=== PATIENT | male | born 1955 | race Caucasian/White ===

== ENCOUNTER 2019-01-28 09:28 | Day surgery (SDC) | payer OTHER ==
[~2019-01-28 09:28] MED LIST: DHEA; NEPHPLEX RX TA1 EACH; VENL150ER; Venlafaxine HC225 MG
--- NOTE | 2019-01-28 11:08 | NUR ---
01/28/19 1108 Erica Natarajan INJECTING MYLICON PER DR MALONEY
== END 2019-01-28 12:00 | disposition home or self-care (01) ==
LOC: ORSCSDS 09:28
PROVIDERS: Internal Medicine Gastroenterology
PROC: 0DBK8ZX Excision of Ascending Colon, Via Natural or Artificial Opening Endoscopic, Diagnostic (ICD-10-PCS; principal; 2019-01-28 10:45)
PROC: 0DBP8ZX Excision of Rectum, Via Natural or Artificial Opening Endoscopic, Diagnostic (ICD-10-PCS; principal; 2019-01-28 10:45)
DX: Z12.11 Encounter for screening for malignant neoplasm of colon (principal); K62.1 Rectal polyp; D12.2 Benign neoplasm of ascending colon; K64.8 Other hemorrhoids; A69.20 Lyme disease, unspecified; F32.9 Major depressive disorder, single episode, unspecified; I10 Essential (primary) hypertension; F17.210 Nicotine dependence, cigarettes, uncomplicated; Z79.899 Other long term (current) drug therapy
CPT/HCPCS: 88305; J2704; J7120

== ENCOUNTER 2019-06-13 12:03 | Day surgery (SDC) | payer OTHER ==
[~2019-06-13] VITALS: Ht 175.3 cm; Wt 100.1 kg
[~2019-06-13 12:03] MED LIST changes: +ATOR20 PO
--- NOTE | 2019-06-13 13:40 | NUR ---
History, Chart, Medications and Allergies reviewed before start of procedure. Patient confirms NPO status and agrees with scheduled surgery.
--- NOTE | 2019-06-13 14:07 | NUR ---
JAME NASAL ELECTRON BEAM WELDER X3 AMPULES TO NARES BILAT PER DR CHAUHAN ORDER.
--- NOTE | 2019-06-13 14:22 | NUR ---
REPORT FROM WILNER JEREZ. ASSUMED PT CARE. PT IN SDS WAITING FOR OR. AT BEDSIDE.
--- NOTE | 2019-06-13 19:37 | NUR ---
SHIFT SUMMARY PT CAME FROM PACU AT 1820, A&OX4, VSS, S/P R TKA, AQUACEL CDI, TEDS/SCDS/POLAR JUAN ON. ROBIN PO, DENIES N&V. DENIES NEED FOR PAIN MEDICATIONS AT THIS TIME; EDU TO TAKE PAIN MED PRIOR TO ESCALATION OF PAIN/CONTINUE TO HAVE CONVERSATIONS RE PAIN MANAGEMENT. REPORT GIVEN TO CHELA JEREZ.
--- NOTE | 2019-06-14 04:26 | NUR ---
SHIFT SUMMARY PO 0 S/P RIGHT TKA; AQUACEL C/D/I WITH POLAR PACK, SKYLER'S, AND PAS IN PLACE. REPORTS PAIN MANAGED WITH PO MEDICATION. TOLERATING REGULAR DIET, DENIES ANY N/V. AMB TO BATHROOM X1 DURING SHIFT WITH FWW AND GB. VOIDING W/OUT DIFFICULTY. PLAN FOR OT/PT EVALUATION AND HOME TOMORROW. IS CURRENTLY RESTING IN BED WITH CALL LIGHT IN REACH. WILL CONT TO MONITOR AND GIVE REPORT TO ONCOMING RN.
[2019-06-14 06:15] LABS: BASOPHILS ABSOLUTE AUTO 0.01 K/mm3 (0.00-0.23); BASOPHILS PERCENT AUTO 0 % (0-2); EOSINOPHILS PERCENT AUTO 0 % (0-6); Hematocrit 43.4 % (37.0-53.0); Hemoglobin 14.7 g/dL (13.5-17.5); IMMATURE GRAN ABSOLUTE AUTO 0.06 K/mm3 (0.00-0.10); IMMATURE GRAN PERCENT AUTO 1 % (0-1); LYMPHOCYTES ABSOLUTE AUTO 0.76 K/mm3 (0.84-5.20); LYMPHOCYTES PERCENT AUTO 6 % (21-46); MONOCYTES ABSOLUTE AUTO 0.48 K/mm3 (0.16-1.47); MONOCYTES PERCENT AUTO 4 % (4-13); Mean Corpuscular HGB 31.7 pg (26.0-34.0); Mean Corpuscular HGB Conc 33.9 g/dL (31.5-36.5); Mean Corpuscular Volume 94 fL (80-100); Mean Platelet Volume 10.6 fL (9.1-12.4); NEUTROPHILS ABSOLUTE AUTO 11.03 K/mm3 (1.96-9.15); NEUTROPHILS PERCENT AUTO 89 % (41-73); Platelet Count 182 K/mm3 (150-400); RDW Coefficient Variation 11.7 % (11.7-14.2); RDW Standard Deviation 39.7 fL (35.1-46.3); Red Blood Cell Count 4.64 M/mm3 (4.30-5.90); White Blood Cell Count 12.34 K/mm3 (4.00-11.30)
[2019-06-14 06:33] LABS: Anion Gap 6 mmol/L (6-16); Blood Urea Nitrogen 19 mg/dL (8-24); Bun/Creatinine Ratio 17.8 (12.0-20.0); CO2, Blood 26 mmol/L (21-32); Calcium, Blood 8.4 mg/dL (8.5-10.1); Chloride, Blood 106 mmol/L (98-108); Creatinine, Blood 1.07 mg/dL (0.60-1.20); Glomerular Filtration Rate >60 (60-); Glucose, Blood 132 mg/dL (70-99); Magnesium, Blood 1.9 mg/dL (1.6-2.4); Potassium, Blood 4.7 mmol/L (3.5-5.5); Sodium, Blood 138 mmol/L (136-145)
[2019-06-14] MEDS ORDERED: ACET500 PO (08:51)
[2019-06-14] MEDS ORDERED: ROXICODONE5 MG PO (08:51)
[2019-06-14] MEDS ORDERED: ASPI81CH PO (08:51)
--- NOTE | 2019-06-14 11:05 | NUR ---
DISCHARGE: PT EATING AND DRINKING, VOIDING, PASSING GAS. PT REPORTS PAIN TOLERABLE ON PO PAIN MEDICATION. PT CLEARED THERAPY TO GO HOME. PT REPORTS HAVING APPR EQUIP AT HOME. PT/FAMILY REPORTS UNDERSTANDING OF DISCHARGE INSTRUCTIONS INCLUDING ICE MACHINE AND DRESSING CHANGES. PT SENT WITH PAPERWORK, BELONGINGS. PT REPORTS WILL TAKE ASA AT HOME THIS AFTERNOON WAS ORDERED HERE.
== END 2019-06-14 11:05 | disposition home or self-care (01) ==
LOC: ORSCMMR 12:03 → ORD 14:15 → ORSCMMR 14:15 → SURS 18:58 → ORSCMMR 06-14 11:05
PROVIDERS: Orthopaedic Surgery
PROC: 0SRC0J9 Replacement of Right Knee Joint with Synthetic Substitute, Cemented, Open Approach (ICD-10-PCS; principal; 2019-06-13 14:15)
DX: M17.11 Unilateral primary osteoarthritis, right knee (principal); E78.5 Hyperlipidemia, unspecified; Z79.899 Other long term (current) drug therapy; E66.9 Obesity, unspecified; Z68.32 Body mass index [BMI] 32.0-32.9, adult
CPT/HCPCS: 36415; 73560-RT; 80048; 83735; 85025; 88300; 97110; 97116; 97162; 97530; C1713; C1776; J0171; J0690; J0735; J1100; J1885; J2250; J2370; J2405; J2704; J2795; J3010; J7120

== ENCOUNTER 2019-11-02 19:21 | Observation (INO) | payer OTHER ==
[~2019-11-02] VITALS: Ht 175.3 cm; Wt 100.6 kg
[~2019-11-02 19:21] MED LIST changes: -ACYC800 PO; -IBUP800 PO; -Norco 5-325 Ta1 EACH PO
[2019-11-02 21:26] LABS: Glucose, CSF 52 mg/dL (40-70)
[2019-11-02 21:41] LABS: RBC Count, CSF 636 /mm3 (0-0); WBC Count, CSF 353 /mm3 (0-5)
[2019-11-02 21:42] LABS: Appearance, CSF Hazy (Clear)
[2019-11-02 21:46] LABS: Appearance, CSF Clear (Clear); RBC Count, CSF 16 /mm3 (0-0); WBC Count, CSF 350 /mm3 (0-5)
[2019-11-02 21:54] LABS: Lymphocytes, CSF 56 % (40-80); Monocytes, CSF 42 % (15-45); Neutrophils, CSF 2 % (0-6)
[2019-11-02 21:56] LABS: Lymphocytes, CSF 45 % (40-80); Monocytes, CSF 54 % (15-45); Other Cells, CSF 1 % (0-1)
[2019-11-02 22:44] LABS: Cryptococcus Neoformans/Gattii Not Detected (NOT DETECT); Enterovirus Not Detected (NOT DETECT); Escherichia Coli K1 Not Detected (NOT DETECT); Haemophilus Influenza Not Detected (NOT DETECT); Herpes Simplex Virus 1 Not Detected (NOT DETECT); Herpes Simplex Virus 2 Detected (NOT DETECT); Human Herpesvirus 6 Detected (NOT DETECT); Human Parechovirus Not Detected (NOT DETECT); Listeria Monocytogenes Not Detected (NOT DETECT); Neisseria Meningitidis Not Detected (NOT DETECT); Streptococcus Agalactiae Not Detected (NOT DETECT); Streptococcus Pneumoniae Not Detected (NOT DETECT); Varicella Zoster Virus Not Detected (NOT DETECT)
--- NOTE | 2019-11-03 01:27 | NUR ---
RECEIVED REPORT FROM DELVIN SMITH RN. PT ARRIVED TO RM 333 VIA W/C. A/O. INDEPENDENT. RESP E/U ON RA. NO COMPLAINTS OF PAIN. STATES HEADACHE WAS 3/10 TOLERABLE, NO NEED FOR PAIN MED. PT ORIENTED TO CALL LT SYSTEM, CALL LT IN REACH. WILL MONITOR AND PROVIDE CARE T/O SHIFT.
--- NOTE | 2019-11-03 04:03 | NUR ---
PT STATES HE'S DOING GREAT. NO NEEDS AT THIS TIME. CALL LT IN REACH.
--- NOTE | 2019-11-03 04:08 | NUR ---
SHIFT SUMMARY: ER ADMIT AT 0127. A/O AND INDEPENDENT IN RM. NO COMPLAINTS. NO HEADACHE AT END OF SHIFT. ON RA. SINUS RHYTHM ON TELE AT 81. VSS. BANDAID OVER LUMBAR PUNCTURE SITE. WILL CONTINUE TO MONITOR AND PROVIDE CARE UNTIL SHIFT REPORT.
[2019-11-03 04:31] LABS: Adenovirus Not Detected (NOT DETECT); Bordetella pertussis Not Detected (NOT DETECT); Chlamydophila pneumoniae Not Detected (NOT DETECT); Coronavirus 229E Not Detected (NOT DETECT); Coronavirus HKU1 Not Detected (NOT DETECT); Coronavirus NL63 Not Detected (NOT DETECT); Coronavirus OC43 Not Detected (NOT DETECT); Human Metapneumovirus Not Detected (NOT DETECT); Human Rhinovirus/Enterovirus Not Detected (NOT DETECT); Influenza A/2009-H1 Not Detected (NOT DETECT); Influenza A/H1 Not Detected (NOT DETECT); Influenza A/H3 Not Detected (NOT DETECT); Influenza B Not Detected (NOT DETECT); Mycoplasma pneumoniae Not Detected (NOT DETECT); Parainfluenza Virus 1 Not Detected (NOT DETECT); Parainfluenza Virus 2 Not Detected (NOT DETECT); Parainfluenza Virus 3 Not Detected (NOT DETECT); Parainfluenza Virus 4 Not Detected (NOT DETECT); Respiratory Syncytial Virus Not Detected (NOT DETECT)
[2019-11-03 05:39] LABS: BASOPHILS ABSOLUTE AUTO 0.04 K/mm3 (0.00-0.23); BASOPHILS PERCENT AUTO 0 % (0-2); EOSINOPHILS ABSOLUTE AUTO 0.14 K/mm3 (0.00-0.68); EOSINOPHILS PERCENT AUTO 2 % (0-6); Hematocrit 45.7 % (37.0-53.0); Hemoglobin 15.1 g/dL (13.5-17.5); IMMATURE GRAN ABSOLUTE AUTO 0.02 K/mm3 (0.00-0.10); IMMATURE GRAN PERCENT AUTO 0 % (0-1); LYMPHOCYTES ABSOLUTE AUTO 1.46 K/mm3 (0.84-5.20); LYMPHOCYTES PERCENT AUTO 16 % (21-46); MONOCYTES ABSOLUTE AUTO 0.99 K/mm3 (0.16-1.47); MONOCYTES PERCENT AUTO 11 % (4-13); Mean Corpuscular HGB 30.6 pg (26.0-34.0); Mean Corpuscular Volume 93 fL (80-100); Mean Platelet Volume 10.4 fL (9.1-12.4); NEUTROPHILS ABSOLUTE AUTO 6.52 K/mm3 (1.96-9.15); NEUTROPHILS PERCENT AUTO 71 % (41-73); Platelet Count 202 K/mm3 (150-400); Red Blood Cell Count 4.94 M/mm3 (4.30-5.90); White Blood Cell Count 9.17 K/mm3 (4.00-11.30)
[2019-11-03 06:10] LABS: Alanine Aminotransfer (ALT/SGP 17 U/L (12-78); Albumin, Blood 3.2 g/dL (3.4-5.0); Albumin/Globulin Ratio 1.1 (0.8-1.8); Alk Phos 71 U/L (50-136); Anion Gap 5 mmol/L (6-16); Aspartate Aminotrans (AST/SGOT 14 U/L (12-37); Bilirubin, Total 0.6 mg/dL (0.1-1.0); Blood Urea Nitrogen 22 mg/dL (8-24); Bun/Creatinine Ratio 20.2 (12.0-20.0); CO2, Blood 27 mmol/L (21-32); Calcium, Blood 8.4 mg/dL (8.5-10.1); Chloride, Blood 108 mmol/L (98-108); Creatinine, Blood 1.09 mg/dL (0.60-1.20); Glomerular Filtration Rate >60 (60-); Glucose, Blood 114 mg/dL (70-99); Sodium, Blood 140 mmol/L (136-145); Total Protein, Blood 6.2 g/dL (6.4-8.2)
--- NOTE | 2019-11-03 17:35 | NUR ---
SHIFT SUMMARY PT ALERT, ORIENTED, INDEPENDENT IN THE ROOM. PT'S SPOUSE IN THE ROOM THIS AM AND AGAIN THIS AFTERNOON. PT UP INDEPENDENTLY TO THE BATHROOM AND SHOWERED INDEPENDENTLY THIS SHIFT. PT ON ACYCLOVIR IV THIS SHIFT. PT MEDICATED FOR PAIN THROUGHOUT THIS SHIFT. PT CURRENTLY SITTING UP IN BED AT BEDSIDE.
--- NOTE | 2019-11-04 04:52 | NUR ---
GAMES MANAGER SUMMARY PT A/O X4. INDEPENDENT IN ROOM. PT HAD SOME DIFFICULTY CATCHING BREATH WHEN PAIN MEDS WERE GIVEN IN AM SHIFT PER REPORT. CONT PULSE OX AND CPAP ORDERED WHICH PT SIGNED A REFUSAL FORM FOR. PT'S PAIN WAS WELL CONTROLLED. ONLY MEDICATED ONCE TONIGHT. 02 SAT WAS IN THE HIGH 90'S AFTER PAIN MED WAS GIVEN. DENIES NUCHAL RIGIDTY OR PAIN. PT DOES HAVE HEADACHE AND LEG PAIN. PT EXPRESSED HE FELT GOOD AFTER PAIN MEDICATION WAS GIVEN AND DID NOT HAVE SOB. VSS, SLEPT WELL TONIGHT.
[2019-11-04 06:09] LABS: BASOPHILS ABSOLUTE AUTO 0.03 K/mm3 (0.00-0.23); BASOPHILS PERCENT AUTO 0 % (0-2); EOSINOPHILS PERCENT AUTO 1 % (0-6); Hematocrit 42.9 % (37.0-53.0); Hemoglobin 14.6 g/dL (13.5-17.5); IMMATURE GRAN ABSOLUTE AUTO 0.03 K/mm3 (0.00-0.10); IMMATURE GRAN PERCENT AUTO 0 % (0-1); LYMPHOCYTES PERCENT AUTO 16 % (21-46); MONOCYTES ABSOLUTE AUTO 0.59 K/mm3 (0.16-1.47); MONOCYTES PERCENT AUTO 8 % (4-13); Mean Corpuscular HGB 31.3 pg (26.0-34.0); Mean Corpuscular Volume 92 fL (80-100); Mean Platelet Volume 10.8 fL (9.1-12.4); NEUTROPHILS ABSOLUTE AUTO 5.62 K/mm3 (1.96-9.15); NEUTROPHILS PERCENT AUTO 74 % (41-73); Platelet Count 195 K/mm3 (150-400); RDW Coefficient Variation 11.9 % (11.7-14.2); RDW Standard Deviation 40.2 fL (35.1-46.3); Red Blood Cell Count 4.66 M/mm3 (4.30-5.90); White Blood Cell Count 7.57 K/mm3 (4.00-11.30)
[2019-11-04 06:28] LABS: Alanine Aminotransfer (ALT/SGP 16 U/L (12-78); Albumin, Blood 3.1 g/dL (3.4-5.0); Albumin/Globulin Ratio 1.1 (0.8-1.8); Alk Phos 66 U/L (50-136); Anion Gap 5 mmol/L (6-16); Aspartate Aminotrans (AST/SGOT 9 U/L (12-37); Bilirubin, Total 0.9 mg/dL (0.1-1.0); Blood Urea Nitrogen 16 mg/dL (8-24); Bun/Creatinine Ratio 15.2 (12.0-20.0); CO2, Blood 25 mmol/L (21-32); Calcium, Blood 8.1 mg/dL (8.5-10.1); Chloride, Blood 106 mmol/L (98-108); Creatinine, Blood 1.05 mg/dL (0.60-1.20); Globulin, Blood 2.9 g/dL (2.2-4.0); Glomerular Filtration Rate >60 (60-); Glucose, Blood 107 mg/dL (70-99); Potassium, Blood 4.6 mmol/L (3.5-5.5); Sodium, Blood 136 mmol/L (136-145)
[2019-11-04] MEDS ORDERED: ACYC800 PO (13:08)
[2019-11-04] MEDS ORDERED: Norco 5-325 Ta1 EACH PO (13:09)
[2019-11-04] MEDS ORDERED: IBUP800 PO (13:09)
--- NOTE | 2019-11-04 15:43 | NUR ---
SHIFT SUMMARY PT AWAKE DURING SHIFT REPORT. INDEPENDENT IN AND TO [facility]. REPORTED ARELLANO AND RLE PAIN AND REQUESTED PO PAIN MEDICATION INSTEAD OF IV. DR STORM NOTIFIED; NEW ORDERS RECEIVED. PT REPORTED MEDICATION HELPED. IV ABX INFUSED PER EMAR. DR STORM LATER IN TO SEE PT. D/C ORDERS PLACED. DISCUSSED D/C INSTRUCTIONS WITH PT AND . MEDS FAXED TO [facility] PER PT. NO FURTHER C/O. PT REQUESTED AND ABLE TO AMBULATE OUT ON HIS OWN W/O DIFFICULTY.
== END 2019-11-04 13:36 | disposition home or self-care (01) ==
LOC: ER 19:21 → MEDS 19:22
PROVIDERS: Emergency Medicine; Family Medicine; ADMIT Internal Medicine
DX: B00.3 Herpesviral meningitis (principal); Z87.891 Personal history of nicotine dependence
CPT/HCPCS: 0099U; 36415; 62270; 70450; 70496; 80053; 82945; 84157; 85025; 87070; 87205; 87483; 89051; 94760; 96365; 96366; 96367; 96372; 96375; 96376; 99285-25; G0378; J0133; J1650; J1885; J2060; J2270; J2405; J3010; J7030; J8499; Q9967

== ENCOUNTER → 2019-11-02 | Outpatient (CLI) | payer OTHER ==
[~2019-11-02] MED LIST changes: +ACET500 PO; +ACYC800 PO; +ASPI81CH PO; +IBUP800 PO; +Norco 5-325 Ta1 EACH PO; +ROXICODONE5 MG PO
[2019-11-02 18:59] LABS: BASOPHILS ABSOLUTE AUTO 0.03 K/mm3 (0.00-0.23); BASOPHILS PERCENT AUTO 0 % (0-2); EOSINOPHILS ABSOLUTE AUTO 0.04 K/mm3 (0.00-0.68); EOSINOPHILS PERCENT AUTO 0 % (0-6); Hematocrit 44.9 % (37.0-53.0); Hemoglobin 15.8 g/dL (13.5-17.5); IMMATURE GRAN ABSOLUTE AUTO 0.03 K/mm3 (0.00-0.10); IMMATURE GRAN PERCENT AUTO 0 % (0-1); LYMPHOCYTES ABSOLUTE AUTO 0.99 K/mm3 (0.84-5.20); LYMPHOCYTES PERCENT AUTO 11 % (21-46); MONOCYTES ABSOLUTE AUTO 0.51 K/mm3 (0.16-1.47); MONOCYTES PERCENT AUTO 6 % (4-13); Mean Corpuscular HGB 31.3 pg (26.0-34.0); Mean Corpuscular HGB Conc 35.2 g/dL (31.5-36.5); Mean Corpuscular Volume 89 fL (80-100); Mean Platelet Volume 10.6 fL (9.1-12.4); NEUTROPHILS ABSOLUTE AUTO 7.44 K/mm3 (1.96-9.15); NEUTROPHILS PERCENT AUTO 82 % (41-73); Platelet Count 217 K/mm3 (150-400); RDW Standard Deviation 39.3 fL (35.1-46.3); Red Blood Cell Count 5.04 M/mm3 (4.30-5.90); White Blood Cell Count 9.04 K/mm3 (4.00-11.30)
[2019-11-02 20:04] LABS: Alanine Aminotransfer (ALT/SGP 22 U/L (12-78); Albumin, Blood 3.5 g/dL (3.4-5.0); Alk Phos 77 U/L (50-136); Anion Gap 7 mmol/L (6-16); Aspartate Aminotrans (AST/SGOT 7 U/L (12-37); Bilirubin, Total 1.2 mg/dL (0.1-1.0); Blood Urea Nitrogen 14 mg/dL (8-24); Bun/Creatinine Ratio 15.9 (12.0-20.0); CO2, Blood 23 mmol/L (21-32); Calcium, Blood 8.7 mg/dL (8.5-10.1); Chloride, Blood 108 mmol/L (98-108); Creatinine, Blood 0.88 mg/dL (0.60-1.20); Globulin, Blood 3.4 g/dL (2.2-4.0); Glomerular Filtration Rate >60 (60-); Glucose, Blood 121 mg/dL (70-99); Potassium, Blood 3.9 mmol/L (3.5-5.5); Sodium, Blood 138 mmol/L (136-145); Total Protein, Blood 6.9 g/dL (6.4-8.2)
== END | disposition home or self-care (01) ==
LOC: LAB SHORT 18:53 → LAB EV 18:53
PROVIDERS: Physician Assistant Medical
DX: M54.5 Low back pain (principal)
CPT/HCPCS: 80053; 85025

== ENCOUNTER → 2021-08-26 | Outpatient (CLI) | payer OTHER ==
[~2021-08-26] MED LIST changes: +ACYC800 PO; +IBUP800 PO; +Norco 5-325 Ta1 EACH PO
== END ==
LOC: LAB SHORT 14:02 → PLD 14:02
DX: D48.5 Neoplasm of uncertain behavior of skin (principal)
CPT/HCPCS: 88342

== ENCOUNTER 2024-12-07 06:35 | Day surgery (SDC) | payer OTHER ==
[~2024-12-07] VITALS: Ht 175.3 cm; Wt 98.9 kg
[~2024-12-07 06:35] MED LIST changes: +ATOR20; +LOSA25; +TAMS.4ER
[2024-12-07] MEDS ORDERED: EPINEPhrine HCl 1 MG / ML 30ML Vial ONE (06:56)
[2024-12-07] MEDS ORDERED: TERB250 PO (07:09)
[2024-12-07] MEDS ORDERED: CLAR500 PO (07:10)
[2024-12-07] MEDS ORDERED: PRED20 PO (07:10)
[2024-12-07] MEDS ORDERED: Tranexamic Acid 100 ML IV ONE (07:26)
[2024-12-07] MEDS ORDERED: Rocuronium Bromide 10 MG/ML 5ML Injection IV ONE ×3 (07:52→09:03)
[2024-12-07] MEDS ORDERED: Midazolam HCl 1MG / ML 2ML Vial ONE (07:54)
[2024-12-07] MEDS ORDERED: FentaNYL Citrate 50 MCG/ML 2 ML Injection ONE ×2 (07:54→10:06)
[2024-12-07] MEDS ORDERED: Lidocaine 1%-Epineph 1:200000 30 ML SDV INJ ONE ×2 (08:06)
[2024-12-07] MEDS ORDERED: Ondansetron HCl 2 MG / ML 2ML Vial ONE (08:19)
[2024-12-07] MEDS ORDERED: Dexamethasone Sod Phos 10 MG/ML 1ML VIAL ONE (08:19)
[2024-12-07] MEDS ORDERED: Sugammadex Sodium 200 MG/2ML SDV (100 MG/ML) ONE (09:44)
[2024-12-07 11:03] VITALS: BP 145/85
[2024-12-07] MEDS ORDERED: Phenylephrine HCl 100 MCG/ML-NS 10MLSYR (1MG/10ML) IV ONE (17:40)
== END 2024-12-07 11:13 | disposition home or self-care (01) ==
LOC: ORSCSDS 06:35
PROVIDERS: Otolaryngology
PROC: 09DQ4ZZ Extraction of Right Maxillary Sinus, Percutaneous Endoscopic Approach (ICD-10-PCS; principal; 2024-12-07 08:00)
PROC: 09DR4ZZ Extraction of Left Maxillary Sinus, Percutaneous Endoscopic Approach (ICD-10-PCS; principal; 2024-12-07 08:00)
PROC: 8E09XBZ Computer Assisted Procedure of Head and Neck Region (ICD-10-PCS; principal; 2024-12-07 08:00)
PROC: 09SL8ZZ Reposition Nasal Turbinate, Via Natural or Artificial Opening Endoscopic (ICD-10-PCS; principal; 2024-12-07 08:00)
DX: J32.8 Other chronic sinusitis (principal); J34.2 Deviated nasal septum; J34.3 Hypertrophy of nasal turbinates; I10 Essential (primary) hypertension; E78.5 Hyperlipidemia, unspecified; F32.A Depression, unspecified; Z79.899 Other long term (current) drug therapy
CPT/HCPCS: 88305; 88311; A9270; C2625; J0165; J1100; J2250; J2371; J2405; J2704; J3010; J7120